=== PATIENT | male | born 1975 | race Caucasian/White ===

== ENCOUNTER 2025-08-24 08:02 | Emergency (ER) | payer MEDICAID ==
[~2025-08-24] VITALS: Ht 182.9 cm; Wt 102.0 kg
[2025-08-24 08:23] LABS: MEAN PLATELET VOLUME 8.7 FL (7.4-10.4); RED CELL DISTRIBUTION WIDTH 13.6 % (11.5-14.5)
[2025-08-24] MEDS: ketorolac trometh 30MG/ML vial 30 MG/ML VIAL IV ONE (08:23)
[2025-08-24] MEDS: ondansetron/PF 4mg/2ml inj IV ONE (08:23)
[2025-08-24 08:40] LABS: CREATININE 1.38 MG/DL (0.60-1.10); TOTAL CARBON DIOXIDE 25.4 MMOL/L (24-32); eCRCL 71 ML/MIN; eGFR 55 ML/MIN
--- NOTE | 2025-08-24 09:23 | RADIOLOGY REPORT ---
ULTRASOUND OF SCROTUM AND CONTENTS. INDICATION: R testicular pain COMPARISON: None TECHNIQUE: Multiple real-time grayscale sonographic and color and duplex Doppler images of the scrotum and its contents were obtained. FINDINGS: The right testicle measures 3.2 x 2.6 x 4.0 cm. The left testicle measures 3.6 x 2.4 x 3.2 cm. Both testicles demonstrate homogeneous echotexture without evidence of focal lesions. The right epididymal head measures 1.5 cm. The left epididymal head measures 1.6 cm. Subsequent color and duplex Doppler interrogation of the testes demonstrated symmetric normal vascular flow to both testicles. No focal areas of hyperemia were seen. IMPRESSION: 1. No evidence of torsion, epididymitis, and/or orchitis.
[2025-08-24] MEDS: metoclopramide 5 mg/ml inj IV ONE (09:54)
[2025-08-24 10:26] VITALS: TEMP 98.3
[2025-08-24] MEDS: normal saline 1000ML IV soln IVB ONE (10:28)
--- NOTE | 2025-08-24 10:50 | RADIOLOGY REPORT ---
CLINICAL HISTORY: R groin pain TECHNIQUE: CT of the abdomen and pelvis was performed without IV contrast. This exam was performed according to our departmental dose optimization program. Up-to-date CT equipment and radiation dose reduction techniques are utilized as appropriate. CTDI 33 DLP 229 COMPARISON: None FINDINGS: Abdomen/Pelvis: The spleen, pancreas, gallbladder, adrenal glands, liver, left kidney, and prostate gland are grossly unremarkable. There is a 2 mm right UVJ calculus resulting in [id number] right hydroureteronephrosis and periureteral / perinephric inflammatory change. The abdominal aorta is normal in course and caliber. There are no significant atherosclerotic calcifications. There is no free intraperitoneal air or fluid. There is no enlarged abdominal pelvic lymph node. There is no bowel wall thickening or dilatation. The appendix is absent. Other: The imaged lower thorax is unremarkable. No acute osseous abnormality is evident. Impression: 2 mm right UVJ calculus resulting in [id number] hydroureteronephrosis.
[2025-08-24 10:57] LABS: LEUKOCYTE ESTERASE ,URINE NEGATIVE (Neg); NITRITES, URINE NEGATIVE (Neg); OCCULT BLOOD,URINE NEGATIVE (Neg); UA COLLECTION TYPE CLN CATCH MIDSTREAM
[2025-08-24] MEDS: LIDOcaine 2 gm/250ml D5W 250 ML IV SCH (11:32)
[2025-08-24 11:33] VITALS: RESP 12
--- NOTE | 2025-08-24 11:52 | Physician Documentation ---
History of Present Illness ~ Chief Complaint: Groin Pain Stated Complaint: KIDNEY PAIN Time Seen by MD: 08:08 Mode of Arrival: Ambulatory HPI 50 year old male with acute onset of R testicular/R flank pain that is severe this morning. Denies urinary symptoms, fevers, reports +nausea. Sharp shooting. Medication Reconciliation Allergies: Coded Allergies: No Known Allergies (Unverified , 08/24/25) Review of Systems All Other Systems at this time: Reviewed and Negative Physical Exam Vital Signs: Temperature: 98.3, Source: Temporal, Heart Rate: 54, Respiratory Rate: 12, BP: 140/81, Pulse Oximetry: 98, Weight: 102.000 Oxygen Flow Rate: 0 Physical Exam Gen: no distress HEENT: PERRL, EOMI no neck or facial swelling, uvula midline Pulm: normal WOB, no distress CTAB Cardiac: deferred Abd: soft, NT, ND : normal testicular exam bilaterally with +cremasteric reflex, no testicular swelling or discoloration Skin: w/d/i MSK: no deformity Neuro: nonfocal Psych: normal affect Progress Results/Orders Results/Orders Orders - JENNIFER GARCIA MD Us Testic/W/Duplex (08/24/25 08:08) Ct Abdomen Pelvis (08/24/25 09:10) Completed Orders - JENNIFER GARCIA MD Hydromorphone 1 Mg/Ml/Pf (Dilaudid Inj.) (08/24/25 08:10) Cbc/Diff (08/24/25 08:08) CMP (08/24/25 08:08) Urinalysis, Cult If Indicated (08/24/25 08:08) Us Testic/W/Duplex (08/24/25 08:08) Ketorolac Trometh 30mg/Ml Vial (Toradol (08/24/25 08:20) Ondansetron Inj. (Zofran 4mg/2ml Vial) (08/24/25 08:20) Ct Abdomen Pelvis (08/24/25 09:10) Metoclopramide Inj (Reglan Inj) (08/24/25 09:50) Normal Saline 1000ml (0.9% Sodium Chlori (08/24/25 10:25) Lidocaine 2 Gm/250ml D5w (Lidocaine 0.8% (08/24/25 11:05) Medications Received in ER Medications (Trade) Dose Ordered Sig/Lesa Route PRN Reason Start Time Stop Time Status Last Admin Dose Admin (Dilaudid inj.) 1 mg ONCE ONCE IV 08/24/25 08:10 08/24/25 08:11 DC 08/24/25 08:15 1 MG (Toradol inj. 30mg/ml) 30 mg ONCE ONCE IV 08/24/25 08:20 08/24/25 08:21 DC 08/24/25 08:23 30 MG (Zofran 4mg/2ml vial) 8 mg ONCE ONCE IV 08/24/25 08:20 08/24/25 08:21 DC 08/24/25 08:23 8 MG (Reglan inj) 10 mg ONCE ONCE IV 08/24/25 09:50 08/24/25 09:51 DC 08/24/25 09:54 10 MG (0.9% sodium chloride (NS) 1000ml IV soln) 1,000 ml ONCE ONCE IVB 08/24/25 10:25 08/24/25 10:26 DC 08/24/25 10:28 1,000 ML Lidocaine HCl/ Dextrose 250 ml @ 19.125 mls/ hr Q13H5M IV 08/24/25 11:05 08/24/25 11:30 DC 08/24/25 11:32 19.125 MLS/HR Vital Signs 08/24/25 08/24/25 08/24/25 08/24/25 08:07 08:15 08:18 08:31 Temp 97.6 98.3 Pulse 73 62 Resp 21 20 20 B/P (MAP) 164/95 161/131 (141) Pulse Ox 99 99 08/24/25 08/24/25 08/24/25 08/24/25 09:15 09:31 10:26 11:33 Temp 98.3 98.3 Pulse 51 50 54 54 Resp 20 14 16 12 B/P (MAP) 155/87 (109) 155/87 (109) 163/84 (110) 140/81 (100) Pulse Ox 99 97 97 98 O2 Flow Rate 0 0 0 Laboratory Tests Test 08/24/25 08:16 08/24/25 10:28 White Blood Count 6.5 Red Blood Count 5.02 Hemoglobin 14.4 Hematocrit 43.3 Mean Corpuscular Volume 86.3 Mean Corpuscular Hemoglobin 28.7 Mean Corpuscular Hemoglobin Concent 33.2 Red Cell Distribution Width 13.6 Platelet Count 167 Mean Platelet Volume 8.7 Neutrophils (%) (Auto) 63.1 Lymphocytes (%) (Auto) 27.3 Monocytes (%) (Auto) 7.2 Eosinophils (%) (Auto) 1.7 Basophils (%) (Auto) 0.7 Neutrophils # (Auto) 4.1 Lymphocytes # (Auto) 1.8 Monocytes # (Auto) 0.5 Eosinophils # (Auto) 0.1 Basophils # (Auto) 0.0 CBC Comment Sodium Level 140 Potassium Level 3.9 Chloride Level 104 Carbon Dioxide Level 25.4 Anion Gap 11 Blood Urea Nitrogen 34 H Creatinine 1.38 H Estimated GFR/1.73 m2 55 BUN/Creatinine Ratio 24.6 H Glucose Level 139 H Calcium Level 8.9 Total Bilirubin 0.4 Aspartate Amino Transf (AST/SGOT) 31 Alanine Aminotransferase (ALT/SGPT) 38 Alkaline Phosphatase 46 Total Protein 8.0 Albumin 4.5 Globulin 3.5 Albumin/Globulin Ratio 1.3 Chemistry Comments Urine Specimen Description Cln catch midstream Urine Color Yellow Urine Clarity Clear Urine pH 5.5 Urine Specific Irons >=1.030 Urine Protein Negative Urine Glucose (UA) Negative Urine Ketones 15 H Urine Occult Blood Negative Urine Nitrite Negative Urine Bilirubin Negative Urine Urobilinogen 0.2 Urine Leukocyte Esterase Negative Urine Culture Indicated Not ind Volume Urine Centrifuged 10 ml Urine Comment Medical Decision Making Additional information obtaine: N/A Findings 50 year old male with testicular torsion vs. kidney stone. Workup consistent with kidney stone including CT interpreted by me which demonstrated R-sided 2mm stone at UVJ. Pain control, fluids, improved, return precautions. Urinary Diff Dx:Considerations: Include: Other Genital Diff Dx:Considerations: Include: Other Departure Disposition: HOME / SELF CARE / HOMELESS Impression: Primary Impression: Kidney stone Condition: Stable Discharge Instructions: Kidney Stones Referrals: NO PRIMARY CARE PROVIDER (PCP) Education Educated: Patient Educated regarding: diagnosis, treatment, prognosis, need for follow up Signature Scribe Signature: . Attestation: JENNIFER TARANGO MD Aug 24, 2025 11:52
[2025-08-24 12:46] VITALS: BP 154/97; PULSE 55; O2SAT 97
== END 2025-08-24 12:10 | disposition home or self-care (01) ==
LOC: ER 08:03
DX: N20.0 Calculus of kidney (principal)
CPT/HCPCS: 36415; 74176; 76870; 80053; 81003; 85025; 93976; 96361; 96365; 96375; 99285; J1171; J1885; J2003; J2405; J2765; J7030

== ENCOUNTER 2025-09-20 22:24 | Emergency (ER) | payer MEDICAID ==
[2025-09-20 22:48] VITALS: BP 163/90; PULSE 80; RESP 15; TEMP 96.3; O2SAT 98
[2025-09-20] MEDS: TETanus/Pertussis (Acell)/Diphther VAC/PF (Tdap-Adult) 0.5ml syringe IMVAC ONE (23:12)
--- NOTE | 2025-09-20 23:19 | Physician Documentation ---
History of Present Illness ~ Chief Complaint: Bite-animal Stated Complaint: CAT BITE Time Seen by MD: 22:59 HPI This is a 50-year-old male who presents with concern after he had a cat bite to his left 2nd finger approximately one month ago, patient reports he was reading about someone catching rabies from a cat bite and became concerned. Patient reported "the bite just pricked my finger and reports it was not very deep. Reports unknown last Tdap. Tetanus within 5 years?: No Medication Reconciliation Allergies: Coded Allergies: No Known Allergies (Unverified , 08/24/25) Past Medical History Past Medical History: No Pertinent History Review of Systems ROS As stated above in the HPI, otherwise all systems are reviewed and negative. Physical Exam Vital Signs: Temperature: 96.3, Source: Temporal, Heart Rate: 80, Respiratory Rate: 15, BP: 163/90, Pulse Oximetry: 98 Physical Exam VITALS: Reviewed and as above. GENERAL: Alert, nontoxic appearing, no apparent distress. RESPIRATORY: No increased work of breathing, no respiratory distress, speaking in full clear sentences SKIN: No visible injury or swelling to left fingers Progress Results/Orders Results/Orders Completed Orders - TIP [employer] Tetanus/Pertuss/Diph Acell/Pf (Boostrix (09/20/25 23:00) Medications Received in ER Medications (Trade) Dose Ordered Sig/Lesa Route PRN Reason Start Time Stop Time Status Last Admin Dose Admin (Boostrix vaccine syringe) 0.5 ml ONCE ONCE IMVAC 09/20/25 23:00 09/20/25 23:01 DC 09/20/25 23:12 0.5 ML Vital Signs 09/20/25 22:48 Temp 96.3 Pulse 80 Resp 15 B/P (MAP) 163/90 Pulse Ox 98 Medical Decision Making Additional information obtaine: N/A Findings This 50-year-old male presented with concern for a cat bite one-month after it occurred, given there was no visible injury to the finger and has not had any complications further assessment not indicated, patient's Tdap was updated, given no recent reports of rabies in stray cats in the area rabies vaccinations deferred, with shared decision-making patient will contact animal control [facility] during business hours to inquire on need for rabies vaccination for stray cat bite and will return if advised by animal control. Patient is otherwise well-appearing and appropriate for outpatient follow up, patient provided careful return to care precautions and follow up instructions which he verbalized understanding of. Differential Dx:Considerations: Include: Abrasion, Allergic reaction, Cellulitis, Contusion, Fracture, Laceration, Neurovascular injury, Retained foreign body, Other (Rabies) Departure Time of Disposition: 23:18 Disposition: HOME / SELF CARE / HOMELESS Impression: Primary Impression: Cat bite Qualified Codes: W55.01XA - Bitten by cat, initial encounter Condition: Improved Discharge Instructions: Animal Bite, Adult Additional Instructions: Follow up with the animal control to inquire if you need a rabies prophylaxis vaccine. Please follow up with your primary care provider in the next few days. Please return to the emergency department for any new or worsening concerning symptoms. Referrals: NO PRIMARY CARE PROVIDER (PCP) Education Educated: Patient Educated regarding: diagnosis, treatment, prognosis, need for follow up Signature Scribe Signature: No scribe Attestation: The note accurately reflects work and decisions made by me.GILBERTO Blum 09/20/25 23:19 TIP GAINES Sep 20, 2025 23:18
== END 2025-09-20 23:47 | disposition home or self-care (01) ==
LOC: ER 22:25
DX: S61.251A Open bite of left index finger without damage to nail, initial encounter (principal); W55.01XA Bitten by cat, initial encounter; Y93.89 Activity, other specified; Y92.89 Other specified places as the place of occurrence of the external cause; Y99.8 Other external cause status
CPT/HCPCS: 90471; 90715; 99283

== ENCOUNTER 2025-09-26 20:12 | Emergency (ER) | payer MEDICAID ==
[~2025-09-26] VITALS: Ht 182.9 cm; Wt 110.3 kg
--- NOTE | 2025-09-26 20:49 | Physician Documentation ---
History of Present Illness ~ Chief Complaint: Chest Pain Stated Complaint: ANXIETY Time Seen by MD: 20:28 HPI 50-year-old male patient with a history of CHF anxiety and hypertension presents with general chest discomfort for the last day. He says that he is very healthy in his cognitive of his eating as he reports various forms of supplementation he denies using any stimulants whatsoever as the cause him to feel anxious like he does today. Says that he ran 6 miles a day and was at the gym and felt overly exhausted this afternoon he is preparing for a half marathon who has previously diagnosed with cardiomyopathy but his primary states that he has had generally benign findings for the last two years. Next losartan in amlodipine for hypertension Day of Onset: Sep 26, 2025 Medication Reconciliation Allergies: Coded Allergies: No Known Allergies (Unverified , 08/24/25) Past Medical History Past Medical History: No Pertinent History Review of Systems All Other Systems at this time: Reviewed and Negative ROS As stated above in the HPI, otherwise all systems are reviewed and negative. Physical Exam Vital Signs: Temperature: 98.8, Source: Oral, Heart Rate: 74, Respiratory Rate: 16, BP: 178/87, Pulse Oximetry: 100, Weight: 110.300 Physical Exam General: Alert, no apparent distress. HEENT: PERRL, EOMI, no injection, moist mucous membranes. Neck: Full range of motion. Respiratory: Lungs clear, no respiratory distress. Chest: No accessory muscle use. Cardiovascular: Regular rate and rhythm, no murmurs. Gastrointestinal: Soft, nontender, nondistended. Bowels sounds present. Extremities: Normal range of motion, no deformity. Neurologic: Oriented x4. Psychiatric: Normal mood and affect. Skin: Normal color, warm and dry. No edema, no ecchymosis. Progress Results/Orders Results/Orders Vital Signs 09/26/25 09/26/25 09/26/25 09/26/25 20:15 20:32 20:52 21:35 Temp 98.8 98.8 Pulse 74 81 57 Resp 16 12 12 B/P (MAP) 178/87 151/87 (108) 138/86 Pulse Ox 100 98 98 O2 Flow Rate 0 Laboratory Tests Test 09/26/25 20:48 White Blood Count 6.5 Red Blood Count 4.39 L Hemoglobin 12.8 L Hematocrit 37.8 L Mean Corpuscular Volume 86.1 Mean Corpuscular Hemoglobin 29.2 Mean Corpuscular Hemoglobin Concent 33.9 Red Cell Distribution Width 13.8 Platelet Count 152 Mean Platelet Volume 8.9 Neutrophils (%) (Auto) 65.6 Lymphocytes (%) (Auto) 25.2 Monocytes (%) (Auto) 6.8 Eosinophils (%) (Auto) 1.5 Basophils (%) (Auto) 0.9 Neutrophils # (Auto) 4.3 Lymphocytes # (Auto) 1.6 Monocytes # (Auto) 0.4 Eosinophils # (Auto) 0.1 Basophils # (Auto) 0.1 CBC Comment Sodium Level 136 Potassium Level 3.7 Chloride Level 103 Carbon Dioxide Level 26.3 Anion Gap 7 L Blood Urea Nitrogen 32 H Creatinine 1.03 Estimated GFR/1.73 m2 77 BUN/Creatinine Ratio 31.1 H Glucose Level 118 H Calcium Level 8.6 Troponin I High Sensitivity 10 Pro-B-Type Natriuretic Peptide 103 Albumin 4.0 Chemistry Comments Medical Decision Making Additional information obtaine: old records Findings This patient's lab values EKG and x-ray per my and to interpretation are all unremarkable for any suspicion of a cardiac event. I highly suspect anxiety related to patient's health. Patient seems receptive to this diagnosis. He also seem receptive to further evaluation and treatment in the outpatient setting which I feel it is prudent Heart Score: 3 Differential Dx:Considerations: Include: angina, aortic dissection, chest wall pain, cholelithiasis, CHF, costochondritis, esophageal reflux/spasm, gastritis, herpes zoster, myocardial infarction, pericarditis, pleuritis, pancreatitis, pneumonia, pneumothorax, pulmonary embolus, other Departure Disposition: 01 HOME / SELF CARE / HOMELESS Impression: Primary Impression: Palpitations Additional Impression: Anxiety about health Condition: Improved Discharge Instructions: Generalized Anxiety Disorder, Adult Additional Instructions: Discussed I recommend that she follow up with the primary care for evaluation of your anxiety. Recommend trying an SSRI like Zoloft low dose to start. Do not present with any signs of a cardiac event and your current health very good.. As we discussed, I would also recommend ongoing psychotherapy with pursuing cognitive behavioral therapy to better manage your anxiety symptoms. Referrals: NO PRIMARY CARE PROVIDER (PCP) Education Educated: Patient, Family Educated regarding: diagnosis, treatment Signature Scribe Signature: j Attestation: Scribed for Quinton Rodriguez Animal Nutritionist by Quinton Clifford NP . 09/26/25 20:50 QUINTON RODRIGUEZ NP Sep 26, 2025 20:49
[2025-09-26 20:58] LABS: MEAN PLATELET VOLUME 8.9 FL (7.4-10.4); RED CELL DISTRIBUTION WIDTH 13.8 % (11.5-14.5)
--- NOTE | 2025-09-26 21:00 | RADIOLOGY REPORT ---
CHEST RADIOGRAPH INDICATION: CP TECHNIQUE: Single frontal view of the chest was obtained COMPARISON: None FINDINGS: Lines and Tubes: None Lungs: No focal consolidation. Pleura: No effusion. No pneumothorax. Cardiomediastinal contours: Unremarkable Bones: No acute osseous abnormality. IMPRESSION: No acute cardiopulmonary disease.
[2025-09-26 21:17] LABS: CREATININE 1.03 MG/DL (0.60-1.10); PRO BRAIN NATRIURETIC PEPTIDE 103 PG/ML (0-125); TOTAL CARBON DIOXIDE 26.3 MMOL/L (24-32); eCRCL 95 ML/MIN; eGFR 77 ML/MIN
[2025-09-26 21:35] VITALS: BP 138/86; PULSE 57; RESP 12; TEMP 98.8; O2SAT 98
--- NOTE | 2025-09-27 06:14 | ELECTROCARDIOGRAPH REPORT ---
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 Reading MD: Dr. YRN Mendoza Measurements Intervals [place] Rate: 74 P: 64 WY: 208 QRS: 63 QRSD: 94 T: 51 QT: 398 QTc: 442 Interpretive Statements Sinus rhythm Borderline prolonged [place] interval Baseline wander in lead(s) I,II,aVR Electronically Signed On 09-27-2025 18:12:[address] YRN Mendoza Please click the below link to view image of tracing.
== END 2025-09-26 21:38 | disposition home or self-care (01) ==
LOC: ER 20:12
DX: R00.2 Palpitations (principal); F41.9 Anxiety disorder, unspecified; I11.0 Hypertensive heart disease with heart failure; I50.9 Heart failure, unspecified
CPT/HCPCS: 36415; 71045; 80048; 83880; 84484; 85025; 93005; 99285